=== PATIENT | female | born 1985 | race Caucasian/White ===

== ENCOUNTER → 2016-12-06 | Outpatient (CLI) | payer BC | END | disposition home or self-care (01) | LOC: CFH 08:58 | PROVIDERS: ATTEND Nurse Practitioner Primary Care | DX: R05 Cough (principal); E78.2 Mixed hyperlipidemia; F06.31 Mood disorder due to known physiological condition with depressive features; R53.83 Other fatigue; Z79.899 Other long term (current) drug therapy; Z72.0 Tobacco use | CPT/HCPCS: 71020 ==

== ENCOUNTER → 2016-12-13 | Outpatient (CLI) | payer BC | LOC: LAB 09:21 | PROVIDERS: ATTEND Nurse Practitioner Primary Care | DX: Z02.9 Encounter for administrative examinations, unspecified (principal) ==